=== PATIENT | female | born 1940 | race Caucasian/White ===

== ENCOUNTER 2016-11-06 05:56 | Inpatient (IN) | payer MEDICARE ==
[2016-11-06] MEDS ORDERED: ROPIVACAINE HCL/PF 100 MG, EPINEPHrine 0.2 MG in NORMAL SALINE 100 ML IJ PRN (06:00)
[2016-11-06] MEDS ORDERED: RINGER'S SOLUTION,LACTATED 1,000 ML IV PRN (06:00)
[2016-11-06] MEDS ORDERED: MORPHINE SULFATE 15 MG TABLET.SA PO PRN (06:00)
[2016-11-06] MEDS ORDERED: ceFAZolin SODIUM 1 GM VIAL IV PRN (06:00)
[2016-11-06] MEDS ORDERED: FLU VACC QS2017-18(6MOS UP)/PF 60 MCG/0.5 ML SYRINGE IM ONE (06:48)
[2016-11-06] MEDS ORDERED: RINGER'S SOLUTION,LACTATED 1,000 ML IV ONE ×3 (07:50→09:15)
[2016-11-06] MEDS: TRANEXAMIC ACID 1,000 MG in NORMAL SALINE 100 ML IV PRN ×2 (09:00→09:15)
[2016-11-06] MEDS ORDERED: MAG HYDROX/ALUMINUM HYD/SIMETH 30 ML UDC PO PRN (09:51)
[2016-11-06] MEDS ORDERED: ZOLPIDEM TARTRATE 5 MG TABLET PO PRN (09:51)
[2016-11-06] MEDS ORDERED: diphenhydrAMINE HCL 50 MG/ML VIAL IV PRN (09:51)
[2016-11-06] MEDS ORDERED: MAGNESIUM HYDROXIDE 30 ML UDC PO PRN (09:51)
[2016-11-06] MEDS ORDERED: ONDANSETRON HCL/PF 2 MG/ML VIAL IV PRN (09:51)
[2016-11-06] MEDS ORDERED: HYDROmorphone HCL 2 MG/ML VIAL IV PRN (09:51)
[2016-11-06] MEDS ORDERED: PROMETHAZINE HCL 5 MG in DEXTROSE 5 % IN WATER 50 ML IV PRN ×2 (09:51)
[2016-11-06] MEDS ORDERED: ACETAMINOPHEN 500 MG TABLET PO PRN (09:51)
[2016-11-06] MEDS ORDERED: PANTOPRAZOLE SODIUM 40 MG TABLET.EC PO PRN (09:54)
[2016-11-06] MEDS ORDERED: POLYETHYLENE GLYCOL 3350 119 GM BTL PO PRN (09:54)
--- NOTE | 2016-11-06 09:58 | OR ---
Operative Report - Dictated Report Narrative: Date: 11/06/2016 Preoperative diagnosis: Left Knee degenerative joint disease. Postoperative diagnosis: Left Knee degenerative joint disease. Procedure: Left Total knee arthroplasty. Surgeon: Armaan Farris M.D. Snath Handle Assembler: Abner Barrientos PA-C Anesthesia: Spinal with regional block and local periarticular joint injection. Complications: None Specimens: Bone for disposal. Estimated blood loss: Minimal. Tourniquet time: 74 Minutes at 325 millimeters of mercury. Retained implants: Depuy Attune size 4 left lugged cemented posterior stabilized femoral component. Size 4 fixed-bearing cemented tibial platform. 4 by 5 millimeter posterior stabilized cross-linked tibial insert. 35 millimeter medialized patella button. Indications: Mrs. Crawford is a 76-year-old female who has had long-standing left knee pain and arthrosis. This patient was followed in my clinic for period of time with significant complaints of left knee pain consistent with arthritic changes. She had failed conservative measures including, but not limited to, activity modification, passage of time, medications, and other conservative measures. Patient wished to proceed with surgical treatment. The risks, benefits, and alternatives were discussed in clinic. The risks of , blood clots, bleeding, infection, nerve/tendon blood vessel/ injury, malposition of components, intraoperative fracture, postoperative limited range of motion, persistent pain, failure of components, and need for additional procedures. Patient wished to proceed consent was obtained after answering all questions. Procedure: After marking the correct extremity on the floor, the patient was taken to the operating room. A timeout was performed. IV antibiotics consisting of Ancef were administered prior to the procedure. A regional followed by spinal anesthetic was induced by anesthesia, per my request, on the operative table with all bony prominences well-padded. Henning catheter was placed, and a bump was placed under the operative side buttock. SCDs and JASMYNE hose were utilized on the nonoperative leg. A well-padded tourniquet was applied to the operative thigh. The operative leg was then pre-scrubbed with alcohol prepped, and draped in a standard sterile fashion. After exsanguinating the extremity with an Esmarch bandage, the tourniquet was inflated. After marking out the anterior knee for standard incision centered over the patella, the skin was incised and dissected down to the joint retinaculum. The joint retinaculum was marked out as well as the horizontal axis of the patella, and a standard medial parapatellar arthrotomy was then made. The most proximal aspect of the quadriceps tendon and the patella tendon insertion were protected from release. A partial synovectomy was performed as well as a resection of the infrapatellar fat pad. The distal femoral fat pad proximal to the trochlea was also resected using cautery. The soft tissues were elevated off the medial aspect of the proximal tibia using a Castillo elevator ensuring that we did not transect the medial collateral ligament. Upon initial evaluation range of motion was approximately 5 degrees to 115 degrees of flexion. There were signs of advanced arthrosis in the medial, lateral, and patellofemoral joint spaces. There were large marginal osteophytes which were removed with a rongeur. The knee was hyperflexed and the patella was tucked laterally. Protecting the surrounding soft tissues with Homans, an entry drill was placed down the femoral canal using Whitesides line for guidance into the entry point. The intramedullary femoral alignment wally was utilized in order to cut the distal femur in 5 degrees of valgus resecting 10 millimeters of bone. Next the distal femur was sized to a size 4. A posterior referencing guide was utilized to place the distal femoral cutting block in 3 degrees of external rotation. This was pinned into place. The rotation was confirmed both visually and based on anatomic landmarks. The 4 in 1 cutting jig of the appropriate size was utilized in order to make all bony cuts. The angle wing was used to ensure no notching. Retractors were utilized in order to protect surrounding soft tissues. This cut did not result in any excessive notching. We then cut the box centered over the distal femur. This allowed for resection of the anterior and posterior cruciate ligaments. I then turned my attention to the preparation of the tibia. Using an extra medullary tibial alignment wally, 3 millimeters of bone was resected off the medial articular surface. This was made perpendicular to the mechanical axis of the joint with the alignment wally centered over the ankle mortise. The alignment wally was checked and was noted to be parallel to the mechanical axis, centered over the medial one third of the tibial tubercle, paralleling the anterior surface of the tibia. We then turned our attention to the remaining meniscus and soft tissues. These were removed while protecting the surrounding ligaments and soft tissues. The marginal osteophytes off the anterior, posterior, medial, lateral aspects of the femur and tibia were removed. The tibia was sized out to a size 4. Next the tibia was drilled and punched in an externally rotated position. Next the trial femur and a series of tibial inserts were utilized in order to allow for full extension and maximal flexion. It was found that a 5 millimeter insert gave the best range of motion and stability at multiple flexion points as well as at full extension there was less than 2 mm of gapping both medially and laterally. There is minimal anterior translation with the knee at 90 degrees of flexion and no signs of being able to dislocate the knee. The patella was then prepared. The initial thickness was 20 millimeters. This was reamed down to 10 millimeters parallel to the anterior surface of the patella. It was sized out to a size 35 medialized patella button. This was then drilled and trialed. Without any medial restraint the patella tracked appropriately and did not sublux or dislocate. At this point, it was felt these were the appropriate sized implants, and all trials were removed. The periarticular joint injection consisting of ropivacaine and epinephrine were injected into the periarticular joint tissues. The bony surfaces were thoroughly irrigated with a pulsatile-suction saline irrigation device. A bone plug from the prior resected anterior chamfer cut was placed into the drill hole at the distal femur. The bony surfaces were then dried in preparation for placement of the implants. The cement was vacuum mixed per the shaft tender's instructions. The cement was placed on the dry bony surfaces and posterior aspect of the implants. The implants were impacted into place, removing all extruded cement. At this point anesthesia administered tranexamic acid per protocol intravenously. The knee was placed in extension with axial loading with the trial insert while the cement cured. Once the cement cured, all remaining extruded cement was removed. The knee was placed through a range of motion with the trial insert to ensure appropriate range of motion and stability. Final range of motion was approximately 0 to 120 degrees. The knee was again thoroughly irrigated with pulsatile saline lavage. The final polyethylene insert was then impacted into place ensuring no retained soft tissues. The remaining periarticular joint injection was injected. A medium Hemovac drain was placed exiting superior laterally. The knee was then placed over a triangle and the arthrotomy was closed with interrupted #1 Vicryl after thoroughly irrigating the joint. The deep and subcutaneous tissues were closed with interrupted 0 and 3-0 Vicryl respectively. Skin was closed with a running subcutaneous 3-0 Monocryl and Prineo Dermabond dressing. 4 x 4's, Sof-Rol, and a full leg Reynaldo wrap were applied. All sponge, needle, blade, and instrument counts were correct prior to closing the wounds. Postoperative condition: The patient was awoken and transferred to the postanesthesia care unit in stable condition. Plan is to be admitted to the inpatient medical/surgical floor postoperatively for 24 hours of IV antibiotics , physical therapy, occupational therapy, and medical comanagement. Patient will be weightbearing as tolerated with range of motion as tolerated. DVT prophylaxis will be with SCDs, JASMYNE hose, and pharmacological anticoagulation. Anticipated hospital stay is approximately 2-4 days.
[2016-11-06] MEDS: RINGER'S SOLUTION,LACTATED 1,000 ML IV PRN ×3 (10:58→23:04)
--- NOTE | 2016-11-06 11:00 | OR ---
Anesthesia Procedure Note - Anesthesia Procedure Note Narrative: Vital Signs - Last Taken Temp 36.5 C 11/06/16 10:47 Pulse 73 11/06/16 10:47 Resp 16 11/06/16 10:47 BP 153/73 11/06/16 10:47 Pulse Ox 94 11/06/16 10:47 O2 Oxygen Delivery Method Room Air 11/06/16 10:56 ANESTHESIA PROCEDURE NOTE Date of procedure: 11/06/2016. Time of procedure: 0 750. Performed by: Rubio Salazar CRNA Provider Network Analyst: Mignon Garcia RN . Preprocedure diagnosis: Degenerative joint disease left knee. Need for postoperative analgesia. Post procedure diagnosis: Same. Procedure: Left femoral nerve block Indications: Need for postoperative analgesia. Findings: Patient was brought to operating room #4 and placed in the supine position. Patient was then sedated. Patient's left femoral area was prepped with ChloraPrep. Ultrasound was utilized to identify left femoral nerve. One mL of 1% Xylocaine was infiltrated at the skin and a 22-gauge by 2 inch Stimuplex regional block needle was advanced under ultrasound guidance. Nerve stimulator was also used to confirm needle placement. A total of 30 mL of 0.25 % Marcaine with epinephrine 1 200k was injected around the femoral nerve. Regional block needle removed intact. BL: Minimal. Fluids: N/A. Specimen: N/A. Post procedure condition: The patient tolerated the procedure well. No complications were noted. Thank you for this consultation Rubio Salazar CRNA
[2016-11-06] MEDS: oxyCODONE HCL/ACETAMINOPHEN 1 TAB TABLET PO PRN ×3 (11:48→21:08)
[2016-11-06] MEDS: INSULIN LISPRO 100 UNITS/ML VIAL SC SCH ×2 (12:16→17:16)
[2016-11-06] MEDS ORDERED: ALPRAZolam 0.5 MG TABLET PO PRN (12:42)
--- NOTE | 2016-11-06 12:45 | PN ---
Subjective - Date and Time Seen Date: 11/06/16 Time: 12:42 Subjective Narrative: Thao reports feeling stretching in the back of her knee. Pain is tolerable. No nausea, vomiting, fever, or chills. Objective - Vitals Vitals: Last Vital Signs Temp 36.5 C 11/06/16 10:47 Pulse 73 11/06/16 10:47 Resp 16 11/06/16 10:47 BP 153/73 11/06/16 10:47 Pulse Ox 94 11/06/16 10:47 - Exam Constitutional: Present: Alert, Oriented x3, Cooperative ENT Exam: Present: hearing grossly normal Respiratory: Present: lungs clear, normal breath sounds Cardiovascular/Chest: Present: regular rate, rhythm, no murmur Abdomen: Present: nontender, hypoactive Cauti Physician Documentation - Urinary Catheter Management Urethral (Henning) Date of Insertion: 11/06/16 Time of Insertion: 08:20 Assessment/Plan - Problems/Diagnosis (1) Status post left knee replacement Problem: Acute Narrative: No medical concerns at this time. Having some mild anxiety, will change xanax to q8h prn. Will follow medically. Labs in AM.
[2016-11-06] MEDS: ceFAZolin SODIUM 1 GM in DEXTROSE 5 % IN WATER 100 ML IV SCH ×6 (13:52→23:05)
[2016-11-06] MEDS ORDERED: ERGOCALCIFEROL 50000 UNIT TABLET PO SCH (14:00)
[2016-11-06] MEDS: EZETIMIBE 10 MG TABLET PO SCH ×2 (19:02→20:33)
[2016-11-06] MEDS: MORPHINE SULFATE 15 MG TABLET.SA PO SCH ×2 (19:02→20:33)
[2016-11-06] MEDS: SIMVASTATIN 20 MG TABLET PO SCH ×2 (19:02→20:33)
[2016-11-06] MEDS: SENNOSIDES/DOCUSATE SODIUM 1 TAB TABLET PO SCH ×2 (19:04→20:33)
[2016-11-06] MEDS: INSULIN GLARGINE,HUM.REC.ANLOG 100 UNITS/ML VIAL SC SCH ×2 (19:09→20:33)
[2016-11-06] MEDS ORDERED: EZETIMIBE PO SCH (21:00)
[2016-11-06] MEDS ORDERED: SIMVASTATIN PO SCH (21:00)
[2016-11-07] MEDS: oxyCODONE HCL/ACETAMINOPHEN 1 TAB TABLET PO PRN ×3 (06:01→21:40)
[2016-11-07 06:23] LABS: Hematocrit 29.4 % (37.0-47.0); Hemoglobin 9.7 gm/dL (12.5-16.0); Mean Cell Volume 95.5 fl (78-100); Mean Corpuscular Hemoglobin 31.5 pg (27-31); Mean Platelet Volume 10.5 fl (6.0-9.5); Platelet Count 208 K/mm3 (150-450); Red Blood Count 3.08 M/mm3 (4.2-5.4); Red Cell Distribution Width 12.2 % (11.5-14.0); White Blood Count 10.8 K/mm3 (4.0-10.5)
[2016-11-07 06:27] LABS: Anion Gap 12.4 mmol/L (6.8-13.8); BUN/Creatinine Ratio 15.2 (9.0-21.6); Calcium * 8.3 mg/dL (7.9-10.9); Carbon Dioxide 26.5 mmol/L (24-32.6); Estimated Creat Clear 21.1; Potassium 4.9 mmol/L (3.4-4.6)
--- NOTE | 2016-11-07 08:10 | PN ---
Subjective - Date and Time Seen Date: 11/07/16 Time: 08:09 Subjective Narrative: Subjective: Reports buckling of her knee when she got up and some soreness in her throat. Was able to get to the side of bed with therapy. Pain is well- controlled. Voiding without any complications. Tolerating by mouth intake. Denies any nausea or vomiting. Denies calf pain. Slept well. Physical exam: Alert and oriented to person, place and time Left lower Extremity: Palpable dorsalis pedis pulse. Sensation grossly intact to light touch. Dressings clean and dry. Able to flex and extend ankle and toes. No excessive drainage. Calf and thigh are soft and nontender. Assessment: Postop day 1 status post left total knee arthroplasty. Plan: Continue with physical and occupational therapy weightbearing as tolerated. Continue with anticoagulation. 24 hours postoperative prophylactic antibiotics. Pain control with goal to rely on oral medications. Continue bowel regimen. Will need 6 weeks with walker or assitive device to protect joint while ambulating during the recovery process. Discharge planning. Discontinue drain and Henning catheter. Repeat labs in a.m. Objective - Vitals Vitals: Last Vital Signs Temp 36.7 C 11/06/16 22:32 Pulse 82 11/06/16 22:32 Resp 20 11/06/16 22:32 BP 143/63 11/06/16 22:32 Pulse Ox 88 L 11/06/16 22:32 - Abnormal Lab Findings Abnormal Lab Findings: Abnormal Lab Results 11/07/16 11/07/16 Range/Units 06:07 06:07 WBC 10.8 H (4.0-10.5) K/mm3 RBC 3.08 L (4.2-5.4) M/mm3 Hgb 9.7 L (12.5-16.0) gm/dL Hct 29.4 L (37.0-47.0) % MCH 31.5 H (27-31) pg MPV 10.5 H (6.0-9.5) fl Potassium 4.9 H (3.4-4.6) mmol/L BUN 27 H (3-23) mg/dL Creatinine 1.78 H (0.4-1.4) mg/dL Est GFR (Non-Af Amer) 29 L (60-130) mL/min Random Glucose 157 H (70-110) mg/dL Cauti Physician Documentation - Urinary Catheter Management Urethral (Henning) Date of Insertion: 11/06/16 Time of Insertion: 08:20 Assessment/Plan - Problems/Diagnosis (1) Acute blood loss anemia Problem: Acute (2) Diabetes mellitus Problem: Chronic Qualifiers: Diabetes mellitus type: type 2 (3) Anxiety Problem: Chronic (4) Depression Problem: Chronic (5) Hypertension Problem: Chronic (6) Hyperlipidemia Problem: Chronic (7) Gout Problem: Chronic (8) Status post left knee replacement Problem: Acute (9) History of CVA (cerebrovascular accident) Problem: Chronic (10) Renal disease Problem: Chronic
[2016-11-07] MEDS ORDERED: ALPRAZolam 0.5 MG TABLET PO SCH (09:00)
[2016-11-07] MEDS: MORPHINE SULFATE 15 MG TABLET.SA PO SCH ×2 (09:55→21:40)
[2016-11-07] MEDS: CITALOPRAM HYDROBROMIDE 20 MG TABLET PO SCH (09:55)
[2016-11-07] MEDS: LISINOPRIL 10 MG TABLET PO SCH (09:56)
[2016-11-07] MEDS: METOPROLOL SUCCINATE 50 MG TABLET.SA PO SCH (09:56)
[2016-11-07] MEDS: ENOXAPARIN SODIUM 30 MG/0.3 ML SYRG SC SCH (09:57)
[2016-11-07] MEDS: INSULIN LISPRO 100 UNITS/ML VIAL SC SCH ×3 (10:01→17:13)
[2016-11-07] MEDS: SIMVASTATIN 20 MG TABLET PO SCH (21:43)
[2016-11-07] MEDS: EZETIMIBE 10 MG TABLET PO SCH (21:43)
[2016-11-07] MEDS: INSULIN GLARGINE,HUM.REC.ANLOG 100 UNITS/ML VIAL SC SCH (21:47)
[2016-11-07] MEDS: SENNOSIDES/DOCUSATE SODIUM 1 TAB TABLET PO SCH (21:51)
--- NOTE | 2016-11-07 23:52 | PN ---
Subjective - Date and Time Seen Date: 11/07/16 Time: 16:45 Subjective Narrative: Thao reports doing well. Pain controlled. No nausea/vomting, fever, or chills. Objective - Vitals Vitals: Last Vital Signs Temp 37 C 11/07/16 19:00 Pulse 81 11/07/16 19:00 Resp 20 11/07/16 19:00 BP 110/65 11/07/16 19:00 Pulse Ox 94 11/07/16 19:00 - Abnormal Lab Findings Abnormal Lab Findings: Abnormal Lab Results 11/07/16 11/07/16 Range/Units 06:07 06:07 WBC 10.8 H (4.0-10.5) K/mm3 RBC 3.08 L (4.2-5.4) M/mm3 Hgb 9.7 L (12.5-16.0) gm/dL Hct 29.4 L (37.0-47.0) % MCH 31.5 H (27-31) pg MPV 10.5 H (6.0-9.5) fl Potassium 4.9 H (3.4-4.6) mmol/L BUN 27 H (3-23) mg/dL Creatinine 1.78 H (0.4-1.4) mg/dL Est GFR (Non-Af Amer) 29 L (60-130) mL/min Random Glucose 157 H (70-110) mg/dL - Exam Constitutional: Present: Alert, Oriented x3, Cooperative Respiratory: Present: lungs clear, normal breath sounds Cardiovascular/Chest: Present: regular rate, rhythm, no edema Abdomen: Present: Normal bowel sounds, soft, nontender, nondistended Cauti Physician Documentation - Urinary Catheter Management Urethral (Henning) Date of Insertion: 11/06/16 Time of Insertion: 08:20 Date of Removal: 11/07/16 Time of Removal: 10:00 Assessment/Plan Plan Narrative: No medical concerns. Ok with discharge when ok per ortho/PT. - Problems/Diagnosis (1) Status post left knee replacement Problem: Acute (2) Acute blood loss anemia Problem: Acute
[2016-11-08] MEDS: oxyCODONE HCL/ACETAMINOPHEN 1 TAB TABLET PO PRN (05:34)
[2016-11-08 06:07] LABS: Hematocrit 29.7 % (37.0-47.0); Hemoglobin 9.7 gm/dL (12.5-16.0); Mean Cell Volume 94.9 fl (78-100); Mean Corpuscular Hgb Conc 32.7 g/dl (32-36); Mean Platelet Volume 10.3 fl (6.0-9.5); Platelet Count 205 K/mm3 (150-450); Red Blood Count 3.13 M/mm3 (4.2-5.4); Red Cell Distribution Width 12.1 % (11.5-14.0); White Blood Count 13.3 K/mm3 (4.0-10.5)
[2016-11-08 06:25] LABS: Anion Gap 14.9 mmol/L (6.8-13.8); Calcium * 8.5 mg/dL (7.9-10.9); Carbon Dioxide 24.9 mmol/L (24-32.6); Estimated Creat Clear 20.5; Potassium 4.8 mmol/L (3.4-4.6)
[2016-11-08] MEDS ORDERED: INSULIN LISPRO 100 UNITS/ML VIAL SC SCH (07:00)
[2016-11-08] MEDS: ENOXAPARIN SODIUM 30 MG/0.3 ML SYRG SC SCH (08:02)
[2016-11-08] MEDS: CITALOPRAM HYDROBROMIDE 20 MG TABLET PO SCH (08:06)
[2016-11-08] MEDS: METOPROLOL SUCCINATE 50 MG TABLET.SA PO SCH (08:07)
[2016-11-08] MEDS: LISINOPRIL 10 MG TABLET PO SCH (08:09)
[2016-11-08] MEDS: MORPHINE SULFATE 15 MG TABLET.SA PO SCH (08:18)
--- NOTE | 2016-11-08 09:59 | DS ---
(1) Acute blood loss anemia Problem: Acute (2) Diabetes mellitus Problem: Chronic Qualifiers: Diabetes mellitus type: type 2 (3) Anxiety Problem: Chronic (4) Depression Problem: Chronic (5) Hypertension Problem: Chronic (6) Hyperlipidemia Problem: Chronic (7) Gout Problem: Chronic (8) Status post left knee replacement Problem: Acute (9) History of CVA (cerebrovascular accident) Problem: Chronic (10) Renal disease Problem: Chronic Description of Stay: Mrs. Crawford was admitted to the floor after undergoing left total knee arthroplasty. Tolerated this well. Was admitted to the floor postoperatively for 24 hours of IV antibiotics, pain control, medical comanagement, and occupational and physical therapy. OT and PT were consulted to assist with activities of daily living and ambulation. Was made weightbearing as tolerated with range of motion as tolerated. Pain was initially controlled with IV regimen. This was transitioned to oral once tolerating a by mouth intake. Was resumed on home diet and medications. Had a Henning catheter inserted and the operating room which was discontinued on postoperative day 1. A drain was placed intraoperatively into the knee which was discontinued on postoperative day 1. Lovenox SCD and JASMYNE hose were utilized for DVT prophylaxis. Vital signs remained stable to the hospital course. Serial labs were obtained which showed a final hemoglobin of 9.7 grams. BMP was reviewed and was stable. Physical examination throughout the hospital course showed an extremity that had sensation that was intact to light touch, palpable pulses, a benign wound, motor intact to the toes, ankle, and knee. Knee range of motion was approximately 5 degrees to 80 degrees. Once an oral pain regimen was tolerated and physical therapy goals were met, it was felt that they were stable for discharge to home. Instructions: Continue with weightbearing as tolerated and range of motion as tolerated. It is okay to shower and get the wound wet as long as there is no drainage from the wound. Do not bathe or soak the wound. If there is any drainage from the wound keep the wound clean and dry and cover with dry gauze and tape. Change every 2-3 days as needed if there is any drainage. Cover wound while showering if there is any drainage. Continue with physical therapy. Resume home diet. Report any fever over 101.5 Fahrenheit, uncontrolled pain, increased drainage, foul odor of drainage, new or increased calf pain or shortness of breath, or any other significant complaints. A 325mg dialy aspirin will be started after finishing anticoagulation if not allergic. Continue with JASMYNE hose on the operative extremity until instructed otherwise. No driving until instructed otherwise. Follow up in approximately 10-14 days. Procedures Performed: see notes below List Procedures: Left total knee arthroplasty Discharge Disposition: Home self care Disposition: Home self-care Condition: Good Discharge Activity: Activity as tolerated, Weight bearing Discharge Diet: Consistent carbs Referrals: Clyde Camilo DO [Primary Care Provider] - Additional Patient Instructions (free text): Follow-up in the office with Dr. Farris on 11/21/16@9:45am. [facility] at discharge, please call and fax discharge orders. Prescriptions (Any new or edited meds): Enoxaparin Sodium [Lovenox] 30 mg SC Q24H #7 disp.syrin Morphine Sulfate [Ms Contin] 15 mg PO Q12H #20 tablet.sa oxyCODONE HCL/ACETAMINOPHEN [Percocet 5 MG/325 MG] 1 tab PO Q2H PRN #90 tablet PRN Reason: Moderate Pain Complete Home Medications List: Complete Home Medication List: ALPRAZolam [Xanax] 0.5 mg PO DAILY 09/20/15 Clopidogrel Bisulfate [Plavix] 75 mg PO DAILY 09/20/15 Ezetimibe/Simvastatin [Vytorin 10-20 mg Tablet] 1 each PO HS 09/20/15 Insulin Glargine,Hum.rec.anlog [Lantus Solostar] 28 unit SQ HS 09/20/15 Insulin Lispro [Humalog Kwikpen U-100] 14 unit SQ TID 09/20/15 Lisinopril [Zestril] 10 mg PO DAILY 09/20/15 Metoprolol Succinate [Toprol Xl] 50 mg PO DAILY 09/20/15 Pantoprazole Sodium [Protonix] 40 mg PO DAILY PRN 09/20/15 Polyethylene Glycol 3350 [Miralax] 17 gm PO DAILY PRN 09/20/15 Blood-Glucose Meter [Blood Glucose Monitoring] 1 each MC TID 10/31/16 Cholecalciferol (Vitamin D3) [Vitamin D3] 50,000 unit PO Q14D 10/31/16 Citalopram Hydrobromide [Celexa] 40 mg PO DAILY 10/31/16 Enoxaparin Sodium [Lovenox] 30 mg SC Q24H #7 disp.syrin 11/08/16 Morphine Sulfate [Ms Contin] 15 mg PO Q12H #20 tablet.sa 11/08/16 Sennosides/Docusate Sodium [Senokot-S] 2 tab PO HS tablet 11/08/16 oxyCODONE HCL/ACETAMINOPHEN [Percocet 5 MG/325 MG] 1 tab PO Q2H PRN #90 tablet 11/08/16 Amb Orders for Discharge: PT Evaluation and Treatment Facility: [facility], Location: Rehabilitation Services
[2016-11-08 11:21] VITALS: BP 128/65
== END 2016-11-08 11:30 | disposition home health service (06) | DRG 470 ==
LOC: MS 05:56
PROVIDERS: ADMIT Orthopaedic Surgery; ATTEND Orthopaedic Surgery
PROC: 0SRD0J9 Replacement of Left Knee Joint with Synthetic Substitute, Cemented, Open Approach (ICD-10-PCS; principal; 2016-11-06 08:00)
DX: M17.12 Unilateral primary osteoarthritis, left knee (principal); N18.4 Chronic kidney disease, stage 4 (severe); D62 Acute posthemorrhagic anemia; I12.9 Hypertensive chronic kidney disease with stage 1 through stage 4 chronic kidney disease, or unspecified chronic kidney disease; E11.22 Type 2 diabetes mellitus with diabetic chronic kidney disease; E78.5 Hyperlipidemia, unspecified; Z86.73 Personal history of transient ischemic attack (TIA), and cerebral infarction without residual deficits; Z23 Encounter for immunization
CPT/HCPCS: 36415; 73560; 80048; 85027; 90686; 97110; 97116; 97163; 97166; 97535; G0008; J2405

== ENCOUNTER 2017-03-24 08:28 | Inpatient (IN) | payer MEDICARE ==
[~2017-03-24 08:28] MED LIST: MORPHINE SULFATE 15 MG TABLET.SA PO PRN; ROPIVACAINE HCL/PF 100 MG, EPINEPHrine 0.2 MG in NORMAL SALINE 100 ML IJ PRN; TRANEXAMIC ACID 1,000 MG in NORMAL SALINE 100 ML IV PRN; ceFAZolin SODIUM 1 GM VIAL IV PRN
[2017-03-24] MEDS: RINGER'S SOLUTION,LACTATED 1,000 ML IV PRN ×4 (09:23→22:29)
[2017-03-24] MEDS ORDERED: RINGER'S SOLUTION,LACTATED 1,000 ML IV ONE (11:45)
--- NOTE | 2017-03-24 12:59 | POSTOP NO ---
Date of Surgery: 03/24/17 Patient Tolerated the Procedure: Well Post Operative Diagnosis/Procedures: Spiral Tube Winder: Abner Barrientos PA-C Post-operative Diagnosis: Right hip degenerative joint disease Finding: Above Procedure: Right total hip arthroplasty Estimated Blood Loss: 200 mL Specimens: Bone for disposal
[2017-03-24] MEDS ORDERED: ACETAMINOPHEN 500 MG TABLET PO PRN (13:01)
[2017-03-24] MEDS ORDERED: PROMETHAZINE HCL 5 MG in DEXTROSE 5 % IN WATER 50 ML IV PRN ×2 (13:01)
[2017-03-24] MEDS ORDERED: MAGNESIUM HYDROXIDE 30 ML UDC PO PRN (13:01)
[2017-03-24] MEDS ORDERED: diphenhydrAMINE HCL 50 MG/ML VIAL IV PRN (13:01)
[2017-03-24] MEDS ORDERED: ZOLPIDEM TARTRATE 5 MG TABLET PO PRN (13:01)
[2017-03-24] MEDS ORDERED: MAG HYDROX/ALUMINUM HYD/SIMETH 30 ML UDC PO PRN (13:01)
[2017-03-24] MEDS ORDERED: ONDANSETRON HCL/PF 2 MG/ML VIAL IV PRN (13:01)
--- NOTE | 2017-03-24 13:01 | OR ---
Operative Report - Dictated Report Narrative: Date: 03/24/2017 Preoperative diagnosis: Right hip degenerative joint disease. Postoperative diagnosis: Right hip degenerative joint disease. Procedure: Right Total hip arthroplasty. Surgeon: Armaan Farris M.D. Bus Transportation Manager: Abner Barrientos PA-C Anesthesia: Spinal and local periarticular joint injection. Complications: None Specimens: Bone for disposal. Estimated blood loss: 200 milliliters. Retained implants: Depuy [place] size 4 femoral stem standard offset. Size 48 millimeter ouside diameter 3-hole [place] Gription acetabular cup. 48 millimeter outside by 32 millimeter inside diameter highly cross-linked acetabular liner. 32 millimeter diameter +9 millimeter cobalt chromium femoral head. Cancellous 6.5mm screw 25 and 35 millimeter lengths Indications: Mrs. Crawford is a 76-year-old female who has had long-standing right hip pain and arthrosis. This patient was followed in my clinic for period of time with significant complaints of right hip pain consistent with arthritic changes. She failed conservative measures including but not limited to activity modification, passage of time, medications, and other conservative measures. Patient wished to proceed with surgical treatment. The risks, benefits, and alternatives were discussed in clinic. The risks of , blood clots, bleeding, infection, nerve/tendon blood vessel/ injury, malposition of components, dislocation and/or instability of joint, intraoperative fracture, postoperative limited range of motion, persistent pain, failure of components, and need for additional procedures. Patient wished to proceed. Consent was obtained after answering all questions. Procedure: After marking the correct extremity on the floor, the patient was taken to the operating room. A timeout was performed. IV antibiotics consisting of Ancef were administered prior to the procedure. A spinal anesthetic was induced by anesthesia. A Henning catheter was inserted. The patient was then transitioned to a lateral position on a well-padded pegboard. An axillary roll was placed. The head was in neutral position. The non- operative down leg was well-padded with SCD and JASMYNE hose in place. The arms were supported and padded to protect from any undue pressure on the bony prominences and nerves. A well-padded anterior and posterior pelvic and chest posts were secured in order to maintain a stable position of the pelvis. This was placed so that the pelvis was perpendicular to the floor. The body was in line with the pelvis. Once it was felt that we had protected all the bony prominences and the patient was well secured with a safety belt as well, the leg was pre-scrubbed with alcohol, prepped and draped in a standard sterile fashion. A standard anterior lateral hip incision was marked out over the greater trochanter. Ioban drapes were then placed. The skin incision was then made. Sharp dissection with a scalpel utilizing cautery for hemostasis was carried out down to the gluteus and iliotibial band fascia. This was split in line with the skin incision. The greater trochanter bursa was excised. The anterior and posterior margins of the abductor tendon were identified. The anterior 1/2-1/3 of the tendon was tagged and reflected off the greater trochanter leaving a sleeve of tendon for repair at the completion of the case. This exposed the underlying hip joint capsule. A limb length stitch was placed in the skin and referencedd off a omar on the greater trochanter for evaluation of intraoperative limb lengths. An inverted T-type capsulotomy was made extending this up to the brim of the acetabulum. Using Homans to assist with elevation of the soft tissues off the anterior, superior, and inferior aspects of the femoral neck, the hip was then placed in a figure 4 position and the femoral head was dislocated. With the leg in an externally rotated and adducted position, the cutting flag was utilized in order to omar for a standard femoral neck cut approximately a fingerbreadth above the level of the lesser trochanter. This was done with reference to pre-operative films and overall alignment. This was done while protecting the surrounding soft tissues with Homans. The femoral head was then removed and sized for guidance on preparation of the acetabulum. It was noted that there was loss of articular cartilage on both the femoral head and weightbearing portions of the acetabulum. We then returned the leg to the table and turned our attention to the acetabulum. While protecting the surrounding soft tissues, the labrum and remaining tissue in the fovea were excised using a scalpel and cautery. A series of reamers up to size 48 millimeter were utilized to prepare the acetabulum. The final reamer had good purchase and exposed the bleeding subchondral bone. The acetabulum was then thoroughly irrigated ensuring that all bony and cartilaginous materials were removed, and the final acetabular shell was impacted into place. This was placed in approximately 45 degrees of abduction and 20 degrees of anteversion utilizing the outrigger and body axis for alignment. This had a good press fit. 2 6.5mm cancellous screws were placed in the superior posterior quadrant of the acetabulum. The shell was then thoroughly irrigated and the final polyethylene was impacted into place ensuring that it seated completely. This was then protected with a sponge while we returned our attention to the femur. With the leg in a figure 4 position, utilizing Homans for soft tissue protection , a box cutting osteotome, followed by Charnley awl, followed by serial reamers and broaches were utilized in order to prepare the femur. It was found that a size 4 broach gave good axial and rotational stability. The calcar reamer was utilized in order to clean up the cut edges. The proximal femur was visualized to ensure that there were no signs of fracture. A series of heads and necks were trialed. It was found that a standard neck and a + 9 femoral head gave good overall stability. There was minimal longitudinal instability. With the leg in the position of sleep, the femoral head was well covered. Hip range of motion was able to reach full extension and external rotation to greater than 75 degrees prior to impingement along the posterior acetabulum. The hip was able to be flexed to greater than 90 degrees with internal rotation greater than 60 degrees prior to anterior impingement. The limb lengths were near equal based on comparison to the contralateral side and the prior placed limb length stitch. At this point it was felt these were the appropriately sized femoral components as well as neck and femoral head. The trial implants were removed. The femur was thoroughly irrigated. The final implants were impacted into place, and the hip was reduced. After ensuring that there was no damage to the proximal femur , the standard periarticular joint injection of ropivacaine, Toradol, and epinephrine were injected into the joint capsule and surrounding soft tissues. Anesthesia then administered intravenous tranexamic acid. The capsule was repaired with a single interrupted #1 Vicryl. The abductor tendon was repaired to the greater trochanter utilizing #5 Ethibond through drill holes. This was oversewn with #1 Vicryl. The fascia was closed with interrupted #1 Vicryl. The wounds were thoroughly irrigated as we closed in layers. The deep and subcutaneous fat layers were closed with 0 and 3-0 Vicryl respectively. The subcutaneous tissue was closed with a running 3-0 Vicryl and the skin with running 3-0 Monocryl subcutaneous and Prineo Dermabond dressing. All sponge, needle, blade, and instrument counts were correct prior to closing the wounds. Sterile dressings consisting of 4 x 4's, and tape were applied. The patient was awoken and transferred to her hospital bed and then to the postanesthesia care unit in stable condition. Postoperative condition: The plan is to admit to the medical/surgical inpatient floor postoperatively. There will be a projected 2 to 4 day hospital stay. Postoperatively 24 hours of IV antibiotics, pain control, physical therapy, occupational therapy, and medical comanagement will be utilized. Patient will be weightbearing as tolerated with anterior hip precautions. Postoperative films will be obtained in the recovery room.
[2017-03-24] MEDS ORDERED: ONDANSETRON 4 MG TAB.RAPDIS PO PRN (13:03)
[2017-03-24] MEDS: oxyCODONE HCL/ACETAMINOPHEN 1 TAB TABLET PO PRN ×2 (14:19→20:03)
[2017-03-24] MEDS: KETOROLAC TROMETHAMINE 15 MG/ML VIAL IV SCH ×2 (14:49→20:04)
[2017-03-24] MEDS: ceFAZolin SODIUM 1 GM in DEXTROSE 5 % IN WATER 50 ML IV SCH ×4 (15:45→20:11)
[2017-03-24] MEDS: HYDROmorphone HCL 2 MG/ML VIAL IV PRN ×2 (15:46→22:39)
[2017-03-24] MEDS: INSULIN LISPRO 100 UNITS/ML VIAL SC SCH (18:00)
[2017-03-24] MEDS: SENNOSIDES/DOCUSATE SODIUM 1 TAB TABLET PO SCH (20:05)
[2017-03-24] MEDS: SIMVASTATIN 20 MG TABLET PO SCH (20:05)
[2017-03-24] MEDS: EZETIMIBE 10 MG TABLET PO SCH (20:06)
[2017-03-24] MEDS: INSULIN GLARGINE,HUM.REC.ANLOG 100 UNITS/ML VIAL SC SCH (20:08)
[2017-03-24] MEDS ORDERED: SIMVASTATIN PO SCH (21:00)
[2017-03-24] MEDS ORDERED: EZETIMIBE PO SCH (21:00)
[2017-03-25] MEDS: oxyCODONE HCL/ACETAMINOPHEN 1 TAB TABLET PO PRN ×3 (00:59→15:40)
[2017-03-25] MEDS: ceFAZolin SODIUM 1 GM in DEXTROSE 5 % IN WATER 50 ML IV SCH ×2 (02:13)
[2017-03-25] MEDS: KETOROLAC TROMETHAMINE 15 MG/ML VIAL IV SCH ×2 (02:14→08:15)
[2017-03-25] MEDS: HYDROmorphone HCL 2 MG/ML VIAL IV PRN ×2 (02:14→19:32)
[2017-03-25 06:00] LABS: Hematocrit 27.6 % (37.0-47.0); Mean Cell Volume 89.3 fl (78-100); Mean Corpuscular Hemoglobin 29.1 pg (27-31); Mean Corpuscular Hgb Conc 32.6 g/dl (32-36); Mean Platelet Volume 10.5 fl (6.0-9.5); Platelet Count 198 K/mm3 (150-450); Red Blood Count 3.09 M/mm3 (4.2-5.4); Red Cell Distribution Width 13.5 % (11.5-14.0); White Blood Count 7.6 K/mm3 (4.0-10.5)
[2017-03-25 06:11] LABS: Anion Gap 12.5 mmol/L (6.8-13.8); BUN/Creatinine Ratio 18.4 (9.0-21.6); Calcium * 8.2 mg/dL (7.9-10.9); Carbon Dioxide 25.5 mmol/L (24-32.6); Estimated Creat Clear 17.1
[2017-03-25] MEDS: PANTOPRAZOLE SODIUM 40 MG TABLET.EC PO SCH (07:15)
[2017-03-25] MEDS: RINGER'S SOLUTION,LACTATED 1,000 ML IV PRN (07:15)
[2017-03-25] MEDS: INSULIN LISPRO 100 UNITS/ML VIAL SC SCH ×3 (07:56→17:22)
[2017-03-25] MEDS: CITALOPRAM HYDROBROMIDE 20 MG TABLET PO SCH (08:25)
[2017-03-25] MEDS: CLOPIDOGREL BISULFATE 75 MG TABLET PO SCH (08:26)
[2017-03-25] MEDS: POLYETHYLENE GLYCOL 3350 119 GM BTL PO SCH (08:26)
[2017-03-25] MEDS: METOPROLOL SUCCINATE 50 MG TABLET.SA PO SCH (08:26)
[2017-03-25] MEDS: LISINOPRIL 10 MG TABLET PO SCH (08:27)
--- NOTE | 2017-03-25 08:31 | PN ---
Subjective - Date and Time Seen Date: 03/25/17 Time: 08:25 Subjective Narrative: Reports pain in the night but improved now. Reports no pain at rest in the chair but did have pain with getting up to the chair. Some mild nausea this am at times but no vomiting. No other complaints. Objective - Vitals Vitals: Last Vital Signs Temp 36.7 C 03/25/17 07:30 Pulse 80 03/25/17 07:30 Resp 19 03/25/17 07:30 BP 148/66 03/25/17 07:30 Pulse Ox 92 03/25/17 07:30 - Abnormal Lab Findings Abnormal Lab Findings: Abnormal Lab Results 03/25/17 03/25/17 Range/Units 05:40 05:40 RBC 3.09 L (4.2-5.4) M/mm3 Hgb 9.0 L (12.5-16.0) gm/dL Hct 27.6 L (37.0-47.0) % MPV 10.5 H (6.0-9.5) fl Potassium 5.0 H (3.4-4.6) mmol/L BUN 39 H (3-23) mg/dL Creatinine 2.12 H (0.4-1.4) mg/dL Est GFR (Non-Af Amer) 24 L (60-130) mL/min Random Glucose 112 H (70-110) mg/dL - Exam Exam Narrative: Patient up in chair. No distress. Right hip bandages C/D/I. N/V intact RLE. PF/DF ankle 5/5. Calf supple. Constitutional: Present: Alert, Oriented x3, Cooperative, No distress Cauti Physician Documentation - Urinary Catheter Management Urethral (Henning) Date of Insertion: 03/24/17 Time of Insertion: 11:35 Assessment/Plan - Problems/Diagnosis (1) History of total right hip arthroplasty Problem: Acute (2) History of total right hip arthroplasty Problem: Acute (3) Status post total replacement of right hip Problem: Acute Narrative: Pain control, PT, anticoagulation (4) Acute blood loss anemia Problem: Acute Narrative: recheck labs tomorrow am (5) Diabetes mellitus Problem: Chronic (6) History of CVA (cerebrovascular accident) Problem: Chronic (7) Hyperlipidemia Problem: Chronic (8) Hypertension Problem: Chronic (9) Renal disease Problem: Chronic Narrative: CR 2.12, recheck labs tomorrow am, discontinue Toradol.
[2017-03-25] MEDS: ALPRAZolam 0.5 MG TABLET PO SCH (08:39)
[2017-03-25] MEDS: ENOXAPARIN SODIUM 40 MG/0.4 ML SYRG SC SCH (12:03)
[2017-03-25] MEDS: SENNOSIDES/DOCUSATE SODIUM 1 TAB TABLET PO SCH (22:30)
[2017-03-25] MEDS: SIMVASTATIN 20 MG TABLET PO SCH (22:30)
[2017-03-25] MEDS: EZETIMIBE 10 MG TABLET PO SCH (22:30)
[2017-03-25] MEDS: INSULIN GLARGINE,HUM.REC.ANLOG 100 UNITS/ML VIAL SC SCH (22:30)
[2017-03-26] MEDS: oxyCODONE HCL/ACETAMINOPHEN 1 TAB TABLET PO PRN ×3 (01:57→17:11)
[2017-03-26 06:13] LABS: Hematocrit 27.7 % (37.0-47.0); Hemoglobin 9.1 gm/dL (12.5-16.0); Mean Cell Volume 89.6 fl (78-100); Mean Corpuscular Hemoglobin 29.4 pg (27-31); Mean Corpuscular Hgb Conc 32.9 g/dl (32-36); Mean Platelet Volume 10.4 fl (6.0-9.5); Neutrophil # 6.8 K/mm3 (1.3-6.0); Neutrophil % 70.5 % (42-75.0); Platelet Count 202 K/mm3 (150-450); Red Blood Count 3.09 M/mm3 (4.2-5.4); Red Cell Distribution Width 13.7 % (11.5-14.0); White Blood Count 9.7 K/mm3 (4.0-10.5)
[2017-03-26 06:32] LABS: BUN/Creatinine Ratio 16.3 (9.0-21.6); Calcium * 8.4 mg/dL (7.9-10.9); Carbon Dioxide 28.4 mmol/L (24-32.6); Potassium 5.4 mmol/L (3.4-4.6)
[2017-03-26] MEDS: PANTOPRAZOLE SODIUM 40 MG TABLET.EC PO SCH (07:15)
[2017-03-26] MEDS: INSULIN LISPRO 100 UNITS/ML VIAL SC SCH ×3 (07:45→17:11)
[2017-03-26] MEDS: LISINOPRIL 10 MG TABLET PO SCH (09:27)
[2017-03-26] MEDS: ALPRAZolam 0.5 MG TABLET PO SCH (09:28)
[2017-03-26] MEDS: CLOPIDOGREL BISULFATE 75 MG TABLET PO SCH (09:28)
[2017-03-26] MEDS: CITALOPRAM HYDROBROMIDE 20 MG TABLET PO SCH (09:29)
[2017-03-26] MEDS: POLYETHYLENE GLYCOL 3350 119 GM BTL PO SCH (09:30)
[2017-03-26] MEDS: METOPROLOL SUCCINATE 50 MG TABLET.SA PO SCH (09:30)
--- NOTE | 2017-03-26 10:38 | PN ---
Subjective - Date and Time Seen Date: 03/26/17 Time: 10:32 Subjective Narrative: Patient reports mild to moderate pain. Feels pain medications are effective. No nausea or vomiting. No lightheadedness. Feels she is progressing with therapy. No other complaints. Patient reports she does not have much of an appetite and has not been taking in much fluids. Objective Objective Narrative: Patient currently up walking with therapy. Bandages C/D/I. N/V intact. Ambulating well with therapy with one person assistance. - Vitals Vitals: Last Vital Signs Temp 36.8 C 03/26/17 10:10 Pulse 91 03/26/17 10:10 Resp 18 03/26/17 10:10 BP 148/65 03/26/17 10:10 Pulse Ox 96 03/26/17 10:10 - Abnormal Lab Findings Abnormal Lab Findings: Abnormal Lab Results 03/26/17 03/26/17 Range/Units 06:01 06:01 RBC 3.09 L (4.2-5.4) M/mm3 Hgb 9.1 L (12.5-16.0) gm/dL Hct 27.7 L (37.0-47.0) % MPV 10.4 H (6.0-9.5) fl Immature Gran % (Auto) 0.50 H (0.001-0.429) % Immature Gran # (Auto) 0.05 H (0.000-0.0310) K/mm3 Lymphocytes % 16.8 L (20-51) % Monocytes % 11.7 H (0.0-9) % Neutrophils # 6.8 H (1.3-6.0) K/mm3 Monocytes # 1.1 H (0.0-1.0) k/mm3 Potassium 5.4 H (3.4-4.6) mmol/L BUN 33 H (3-23) mg/dL Creatinine 2.02 H (0.4-1.4) mg/dL Est GFR (Non-Af Amer) 25 L (60-130) mL/min Random Glucose 192 H D (70-110) mg/dL - Exam Constitutional: Present: Alert, Oriented x3, Cooperative, No distress Cauti Physician Documentation - Urinary Catheter Management Urethral (Henning) Date of Insertion: 03/24/17 Time of Insertion: 11:35 Assessment/Plan - Problems/Diagnosis (1) History of total right hip arthroplasty Problem: Acute (2) History of total right hip arthroplasty Problem: Acute (3) Status post total replacement of right hip Problem: Acute Narrative: PT, anticoagulation, pain control, case management to further review with family and patient this afternoon patient progress with therapy for possible discharge with home health versus transfer to a skilled care center, she will need wheeled walker for 6-8 weeks (4) Acute blood loss anemia Problem: Acute Narrative: asymptomatic, vital signs stable (5) Diabetes mellitus Problem: Chronic Narrative: Low blood sugar yesterday evening, poor food intake most like cause, did put in formal consult for Dr. Camilo (6) History of CVA (cerebrovascular accident) Problem: Chronic (7) Hyperlipidemia Problem: Chronic (8) Hypertension Problem: Chronic (9) Renal disease Problem: Chronic (10) Hyperkalemia Problem: Acute Narrative: discussed with patient to increase fluid intake
[2017-03-26] MEDS: ENOXAPARIN SODIUM 40 MG/0.4 ML SYRG SC SCH (12:29)
[2017-03-26] MEDS: SENNOSIDES/DOCUSATE SODIUM 1 TAB TABLET PO SCH (21:14)
[2017-03-26] MEDS: SIMVASTATIN 20 MG TABLET PO SCH (21:15)
[2017-03-26] MEDS: EZETIMIBE 10 MG TABLET PO SCH (21:15)
[2017-03-26] MEDS: INSULIN GLARGINE,HUM.REC.ANLOG 100 UNITS/ML VIAL SC SCH (22:04)
--- NOTE | 2017-03-26 23:35 | PN ---
Subjective - Date and Time Seen Date: 03/26/17 Time: 12:50 Subjective Narrative: Thao reports groin pain in right hip. No nausea or vomiting. No fever or chills. Looking into skilled nursing discharge for therapy. Objective - Vitals Vitals: Last Vital Signs Temp 36.8 C 03/26/17 23:18 Pulse 76 03/26/17 23:18 Resp 18 03/26/17 23:18 BP 132/51 03/26/17 23:18 Pulse Ox 92 03/26/17 23:18 - Abnormal Lab Findings Abnormal Lab Findings: Abnormal Lab Results 03/26/17 03/26/17 Range/Units 06:01 06:01 RBC 3.09 L (4.2-5.4) M/mm3 Hgb 9.1 L (12.5-16.0) gm/dL Hct 27.7 L (37.0-47.0) % MPV 10.4 H (6.0-9.5) fl Immature Gran % (Auto) 0.50 H (0.001-0.429) % Immature Gran # (Auto) 0.05 H (0.000-0.0310) K/mm3 Lymphocytes % 16.8 L (20-51) % Monocytes % 11.7 H (0.0-9) % Neutrophils # 6.8 H (1.3-6.0) K/mm3 Monocytes # 1.1 H (0.0-1.0) k/mm3 Potassium 5.4 H (3.4-4.6) mmol/L BUN 33 H (3-23) mg/dL Creatinine 2.02 H (0.4-1.4) mg/dL Est GFR (Non-Af Amer) 25 L (60-130) mL/min Random Glucose 192 H D (70-110) mg/dL - Exam Constitutional: Present: Alert, Oriented x3, Cooperative, No distress ENT Exam: Present: hearing grossly normal Respiratory: Present: normal breath sounds, no respiratory distress Cardiovascular/Chest: Present: regular rate, rhythm, no edema Abdomen: Present: Normal bowel sounds, soft, nontender, nondistended Skin Exam: Present: normal color, warm/dry, no cyanosis Cauti Physician Documentation - Urinary Catheter Management Urethral (Henning) Date of Insertion: 03/24/17 Time of Insertion: 11:35 Assessment/Plan - Problems/Diagnosis (1) Hyperkalemia Problem: Acute Narrative: Mild, ok to monitor. Secondary to ACEI, potassium fluids, and CKD. CKD at baseline. (2) Status post total replacement of right hip Problem: Acute (3) Acute blood loss anemia Problem: Acute Narrative: Anemia stable.
[2017-03-27] MEDS: oxyCODONE HCL/ACETAMINOPHEN 1 TAB TABLET PO PRN ×2 (00:28→09:10)
[2017-03-27 06:31] LABS: Albumin * 2.6 gm/dl (3.4-5.0); Anion Gap 9.4 mmol/L (6.8-13.8); BUN/Creatinine Ratio 16.3 (9.0-21.6); Bilirubin, Total 0.4 mg/dL (0.0-1.1); Ca. Corrected For Albumin 9.3 mg/dL (8.4-10.2); Calcium * 8.5 mg/dL (7.9-10.9); Carbon Dioxide 29.1 mmol/L (24-32.6); Potassium 5.5 mmol/L (3.4-4.6); Total Protein 6.2 gm/dL (6.2-8.2)
[2017-03-27] MEDS: INSULIN LISPRO 100 UNITS/ML VIAL SC SCH ×2 (07:30→12:06)
[2017-03-27] MEDS: PANTOPRAZOLE SODIUM 40 MG TABLET.EC PO SCH (07:31)
[2017-03-27] MEDS: POLYETHYLENE GLYCOL 3350 119 GM BTL PO SCH (08:16)
[2017-03-27] MEDS: LISINOPRIL 10 MG TABLET PO SCH (08:17)
[2017-03-27] MEDS: METOPROLOL SUCCINATE 50 MG TABLET.SA PO SCH (08:18)
[2017-03-27] MEDS: CITALOPRAM HYDROBROMIDE 20 MG TABLET PO SCH (08:19)
[2017-03-27] MEDS: CLOPIDOGREL BISULFATE 75 MG TABLET PO SCH (08:19)
[2017-03-27] MEDS: ALPRAZolam 0.5 MG TABLET PO SCH (08:19)
--- NOTE | 2017-03-27 08:25 | DS ---
(1) History of total right hip arthroplasty Problem: Acute (2) History of total right hip arthroplasty Problem: Acute (3) Status post total replacement of right hip Problem: Acute (4) Acute blood loss anemia Problem: Acute (5) Diabetes mellitus Problem: Chronic (6) History of CVA (cerebrovascular accident) Problem: Chronic (7) Hyperlipidemia Problem: Chronic (8) Hypertension Problem: Chronic (9) Renal disease Problem: Chronic (10) Hyperkalemia Problem: Acute Description of Stay: Mrs. Crawford was admitted to the floor after undergoing right total hip arthroplasty. Tolerated this well. Was admitted to the floor postoperatively for 24 hours of IV antibiotics, pain control, medical comanagement, and occupational and physical therapy. OT and PT were consulted to assist with activities of daily living and ambulation. Was made weightbearing as tolerated with range of motion as tolerated. Pain was initially controlled with IV regimen. This was transitioned to oral once tolerating a by mouth intake. Was resumed on home diet and medications. Had a Henning catheter inserted and the operating room which was discontinued on postoperative day 1. Lovenox SCD and JASMYNE hose were utilized for DVT prophylaxis. Vital signs remained stable to the hospital course. Serial labs were obtained which showed a final hemoglobin of 9.1 grams. BMP was reviewed and was stable noted hyperkalemia and renal insufficiency. Physical examination throughout the hospital course showed an extremity that had sensation that was intact to light touch, palpable pulses, a benign wound, motor intact to the toes, ankle, and knee. Once an oral pain regimen was tolerated and physical therapy goals were met, it was felt that they were stable for discharge to home. Instructions: Continue with weightbearing as tolerated and range of motion as tolerated with anterior hip precautions. It is OK to shower on the wound if it is not draining. If you note any drainage or for comfort you can cover with dry gauze and tape. Change every 2-3 days as needed. Continue with physical therapy. Resume home diet. Report any fever over 101.5 Fahrenheit, uncontrolled pain, increased drainage, foul odor of drainage, new or increased calf pain or shortness of breath, or any other significant complaints. A 325mg dialy aspirin will be started after finishing anticoagulation if not allergic. Continue with JASMYNE hose on the operative extremity until instructed otherwise. No driving until instructed otherwise. Follow up in approximately 10-14 days. Procedures Performed: see notes below List Procedures: Right total hip arthroplasty Discharge Disposition: [facility] Disposition: [facility] Condition: Good Discharge Activity: Weight bearing, Other - with walker and anterior hip precautions Discharge Level of Care:: SNF - Snf Snf Therapy: Physicial Therapy Referrals: Clyde Camilo DO [Primary Care Provider] - Prescriptions (Any new or edited meds): Enoxaparin Sodium [Lovenox] 40 mg SC Q24H #7 disp.syrin oxyCODONE HCL/ACETAMINOPHEN [Percocet 5 MG/325 MG] 1 - 2 tab PO Q6H PRN #90 tablet PRN Reason: Moderate Pain Sennosides/Docusate Sodium [Senokot-S] 2 tab PO HS #30 tablet Complete Home Medications List: Complete Home Medication List: ALPRAZolam [Xanax] 0.5 mg PO DAILY 09/20/15 Clopidogrel Bisulfate [Plavix] 75 mg PO DAILY 09/20/15 Ezetimibe/Simvastatin [Vytorin 10-20 mg Tablet] 1 each PO HS 09/20/15 Insulin Glargine,Hum.rec.anlog [Lantus Solostar] 28 unit SQ HS 09/20/15 Insulin Lispro [Humalog Kwikpen U-100] 14 unit SQ TID 09/20/15 Lisinopril [Zestril] 10 mg PO DAILY 09/20/15 Metoprolol Succinate [Toprol Xl] 50 mg PO DAILY 09/20/15 Pantoprazole Sodium [Protonix] 40 mg PO DAILY 09/20/15 Polyethylene Glycol 3350 [Miralax] 17 gm PO DAILY 09/20/15 Blood-Glucose Meter [Blood Glucose Monitoring] 1 each MC TID 10/31/16 Cholecalciferol (Vitamin D3) [Vitamin D3] 50,000 unit PO Q14D 10/31/16 Citalopram Hydrobromide [Celexa] 40 mg PO DAILY 10/31/16 Ondansetron [Zofran Odt] 4 mg PO Q4H PRN 03/19/17 Enoxaparin Sodium [Lovenox] 40 mg SC Q24H #7 disp.syrin 03/27/17 Sennosides/Docusate Sodium [Senokot-S] 2 tab PO HS #30 tablet 03/27/17 oxyCODONE HCL/ACETAMINOPHEN [Percocet 5 MG/325 MG] 1 - 2 tab PO Q6H PRN #90 tablet 03/27/17
[2017-03-27 10:12] VITALS: BP 141/50
[2017-03-27] MEDS: ENOXAPARIN SODIUM 40 MG/0.4 ML SYRG SC SCH (12:08)
== END 2017-03-27 12:48 | DRG 470 ==
LOC: MS 08:28
PROVIDERS: ADMIT Orthopaedic Surgery; ATTEND Orthopaedic Surgery
PROC: 0SR90JZ Replacement of Right Hip Joint with Synthetic Substitute, Open Approach (ICD-10-PCS; principal; 2017-03-24)
DX: M16.11 Unilateral primary osteoarthritis, right hip (principal); D62 Acute posthemorrhagic anemia; E87.5 Hyperkalemia; T46.4X5A Adverse effect of angiotensin-converting-enzyme inhibitors, initial encounter; E11.9 Type 2 diabetes mellitus without complications; I10 Essential (primary) hypertension; E78.5 Hyperlipidemia, unspecified; Z88.8 Allergy status to other drugs, medicaments and biological substances
CPT/HCPCS: 27130; 36415; 73502; 80048; 80053; 85025; 85027; 97110; 97116; 97162; 97166; 97530; 97535; J2405